=== PATIENT | male | born 1980 | race American Indian/Alaskan Native ===

== ENCOUNTER 2020-12-02 21:45 | Emergency (ER) | payer SELFPAY ==
--- NOTE | 2020-12-02 21:55 | Emergency Department Report ---
ED Male HPI - General Chief complaint: Urogenital-Male Stated complaint: TESTICULAR PAIN Time Seen by Provider: 12/02/20 21:52 Source: patient Mode of arrival: Ambulatory Limitations: No Limitations - History of Present Illness MD Complaint: testicle pain, testicle swelling -: Last night Location: right testicle Severity: moderate Quality: aching, dull Consistency: constant Improves with: none Worsens with: movement swelling. denies: urinary retention, blood in urine, nausea/vomiting, incontinence - Related Data Sexually active: Yes Previous Rx's Medication Instructions Recorded Last Taken Type Ketorolac [Toradol] 10 mg PO Q6H PRN #14 tablet 12/03/20 Unknown Rx RX: Doxycycline Hyclate 100 mg PO Q12HR #20 tab 12/03/20 Unknown Rx [Doxycycline Hyclate TAB] Allergies Allergy/AdvReac Type Severity Reaction Status Date / Time Penicillins Allergy Unknown Verified 12/02/20 21:51 ED Review of Systems ROS: Stated complaint: TESTICULAR PAIN Other details as noted in HPI Comment: All other systems reviewed and negative ED Past Medical Hx - Past Medical History Previous Medical History?: No - Surgical History Past Surgical History?: Yes Additional Surgical History: brain anyuersim - Social History Smoking Status: Current Every Day Smoker Substance Use Type: Alcohol - Medications Home Medications: Home Medications Medication Instructions Recorded Confirmed Last Taken Type Ketorolac [Toradol] 10 mg PO Q6H PRN #14 tablet 12/03/20 Unknown Rx RX: Doxycycline Hyclate 100 mg PO Q12HR #20 tab 12/03/20 Unknown Rx [Doxycycline Hyclate TAB] ED Physical Exam - General Limitations: No Limitations General appearance: alert, in no apparent distress - Head Head exam: Present: atraumatic, normocephalic - Eye Eye exam: Present: normal appearance - ENT ENT exam: Present: mucous membranes moist - Neck Neck exam: Present: normal inspection - Respiratory Respiratory exam: Present: normal lung sounds bilaterally. Absent: respiratory distress - Cardiovascular Cardiovascular Exam: Present: regular rate, normal rhythm. Absent: systolic murmur, diastolic murmur, rubs, gallop - GI/Abdominal GI/Abdominal exam: Present: soft, normal bowel sounds - Rectal Rectal exam: Present: deferred - Extremities Exam Extremities exam: Present: normal inspection - Back Exam Back exam: Present: normal inspection - Neurological Exam Neurological exam: Present: alert, oriented X3 - Psychiatric Psychiatric exam: Present: normal affect, normal mood - Skin Skin exam: Present: warm, dry, intact, normal color. Absent: rash ED Course Vital Signs 12/02/20 21:53 Temperature 98.9 F Pulse Rate 81 Respiratory 18 Rate Blood Pressure 150/102 O2 Sat by Pulse 100 Oximetry ED Medical Decision Making - Radiology Data Radiology results: report reviewed Ultrasound shows epididymitis and orchitis normal testicular flow - Medical Decision Making [age]-year-old [place] male with right testicular pain of unknown etiology no testicular torsion was found on ultrasound. Due to the findings on ultrasound of epididymitis and orchitis he was treated accordingly for STD with gentamicin and Zithromax mixture due to his penicillin allergy and updated STD treatment changes of the CDC. Also he will be discharged home on doxycycline and advised to follow-up with a primary care provider for reevaluation in 3 to 5 days. Critical care attestation.: If time is entered above; I have spent that time in minutes in the direct care of this critically ill patient, excluding procedure time. ED Disposition Clinical Impression: Epididymoorchitis Disposition: TO HOME OR SELFCARE Is pt being admited?: No Does the pt Need Aspirin: No Condition: Stable Instructions: Epididymitis (ED), Epididymitis, Orchitis, Testicular Self-Exam Prescriptions: RX: Doxycycline Hyclate [Doxycycline Hyclate TAB] 100 mg PO Q12HR #20 tab Ketorolac [Toradol] 10 mg PO Q6H PRN #14 tablet PRN Reason: Pain Referrals: PRIMARY MD PRANAY [Primary Care Provider] - 3-5 Days FELICE KINGSTON MD [Staff Physician] - 3-5 Days Forms: STI Treatment and Prevention
[2020-12-02 22:33] LABS: Bilirubin,Urine NEG (Negative); Blood,Urine NEG (Negative); Color,Urine Yellow (Yellow); Protein,Urine <15 mg/dL mg/dL (Negative); Urobilinogen,Urine < 2.0 mg/dL (<2.0)
--- NOTE | 2020-12-02 22:52 | Ultrasound Report ---
ULTRASOUND SCROTUM INDICATION / CLINICAL INFORMATION: r testicle pain post jogging. COMPARISON: None available. FINDINGS -- RIGHT TESTIS: Size = 3.2 x 2.2 x 2.8 cm. - Appearance: No significant abnormality. - Cyst or Mass: None. - Color Doppler Flow: Mildly hypervascular EPIDIDYMIS: Mildly hypervascular relative to the left HYDROCELE: Small VARICOCELE: None demonstrated. FINDINGS -- LEFT TESTIS: Size = 3.5 x 2.0 x 2.7 cm. - Appearance: No significant abnormality. - Cyst or Mass: None. - Color Doppler Flow: No significant abnormality. EPIDIDYMIS: No significant abnormality. HYDROCELE: Small VARICOCELE: None demonstrated. ADDITIONAL FINDINGS: None. IMPRESSION: 1. Increased vascularity in the right testicle and right epididymis suggesting right-sided epididymoo rchitis. 2. Small bilateral hydroceles. Signer Name: Victor Manuel Kramer MD Signed: 12/02/2020 10:48 PM Workstation Name: [id number]
[2020-12-02 22:55] LABS: Mucus,Urine FEW /HPF; RBC,Urine < 1.0 /HPF (0.0-6.0); WBC,Urine < 1.0 /HPF (0.0-6.0)
[2020-12-03] MEDS ORDERED: GENTAMICIN 40 MG/ML VIAL 2 ML IM STA (00:14)
[2020-12-03] MEDS ORDERED: AZITHROMYCIN 250 MG TAB PO ONE (00:16)
[2020-12-03 01:34] VITALS: BP 151/96
== END 2020-12-03 01:34 | disposition home or self-care (01) ==
LOC: ED 21:45
DX: N45.3 Epididymo-orchitis (principal); F17.200 Nicotine dependence, unspecified, uncomplicated; Z79.899 Other long term (current) drug therapy; Z88.0 Allergy status to penicillin
CPT/HCPCS: 81001; 93975; 96372; 99284; J1580